=== PATIENT | female | born 1975 | race Caucasian/White ===

== ENCOUNTER 2020-02-03 23:14 | Emergency (ER) | payer MEDICAID ==
--- NOTE | 2020-02-04 00:43 | RADIOLOGY REPORT (SQ) ---
Left hip and pelvic radiographs: 02/03/2020 11:41 PM CDT TECHNIQUE: AP pelvis; AP and lateral views of the left hip were obtained. COMPARISON: None available HISTORY: 44-year-old patient with recent fall, left hip pain. FINDINGS: The visualized sacroiliac joints are unremarkable. There are no findings to suggest an acute fracture or subluxation within the left hip. There are no findings to suggest an acute fracture of the pelvis. Mild degenerative changes are seen within the lower lumbar spine. IMPRESSION: There are no findings to suggest an acute fracture or subluxation of the left hip. There are no findings to suggest an acute fracture within the pelvis.
[2020-02-04] MEDS ORDERED: CYCLOBENZAPRINE HCL 10 MG TABLET PO ONE (01:21)
[2020-02-04] MEDS ORDERED: DEXAMETHASONE SOD PHOS INJ 10 MG/1 ML VIAL IM ONE (01:21)
--- NOTE | 2020-02-04 01:25 | ER Document Report ---
HPI - HPI Time Seen by Provider: 02/04/20 01:06 Pain Level: 5 Context: Patient is a 44-year-old female that comes to the emergency department for chief complaint of several days of pain in her left lower back that radiates around to her left lateral buttock area. She states she thinks it is her hip that hurts her. She states that she has been sleeping on a small couch and since then she has started developing the symptoms. She denies a fall injury. She denies pain radiating down her leg, she denies focal numbness or weakness, she denies incontinence. She denies fever, urinary symptoms, flank pain otherwise, abdominal pain, nausea or vomiting. She denies ever using IV drugs. She is on Depo-Provera shot but no other medications. She denies any other medical history. - CONSTITUTIONAL Constitutional: DENIES: Fever, Chills - EENT EENT: DENIES: Sore Throat, Ear Pain, Eye problems - NEURO Neurology: DENIES: Headache, Weakness, Vision blurred, Dizzinesss / Vertigo - CARDIOVASCULAR Cardiovascular: DENIES: Chest pain - RESPIRATORY Respiratory: DENIES: Trouble Breathing, Coughing - GASTROINTESTINAL Gastrointestinal: DENIES: Abdominal Pain, Black / Bloody Stools - URINARY Urinary: DENIES: Dysuria, Urgency, Frequency - MUSCULOSKELETAL Musculoskeletal: REPORTS: Extremity pain - Left hip Past Medical History - General Information source: Patient - Social History Smoking Status: Current Every Day Smoker Drug Abuse: None Lives with: Family Family History: Reviewed & Not Pertinent Patient has homicidal ideation: No Surgical Hx: Negative - Immunizations Immunizations up to date: Yes Hx Diphtheria, Pertussis, Tetanus Vaccination: Yes Vertical Provider Document - CONSTITUTIONAL General Appearance: WD/WN, Thin. negative: No Apparent Distress - Patient moves uncomfortably but does not appear to be in severe distress - HEENT HEENT: Atraumatic, Normocephalic - NECK Neck: Normal Inspection - RESPIRATORY Respiratory: Breath Sounds Normal, No Respiratory Distress - CARDIOVASCULAR Cardiovascular: Regular Rate, Regular Rhythm - GI/ABDOMEN Gastrointestinal: Abdomen Soft, Abdomen Non-Tender. negative: Abdomen Tender - BACK Back: negative: Normal Inspection - Tenderness along the left paralumbar musculature extending down towards the left gluteal area. This is worse with straight leg raise on the left as well. No midline tenderness, no saddle anesthesia, no signs of trauma. Normal upper and lower extremity range of motion, normal strength, normal distal neurovascular exam. Patient can ambulate but with discomfort. - MUSCULOSKELETAL/EXTREMETIES Musculoskeletal/Extremeties: HUGO, FROM, Non-Tender - NEURO Level of Consciousness: Awake, Alert, Appropriate Motor/Sensory: No Motor Deficit, No Sensory Deficit - DERM Integumentary: Warm, Dry, No Rash Course - Re-evaluation Re-evalutation: Patient has very specific point tenderness along the musculature of the left paralumbar spinal muscles. This appears to be in spasm. No neurological deficits, no reported risk factors, no concerning findings otherwise. Vital signs unremarkable. X-ray from triage of the left hip does show some lumbar degenerative changes but no concerning findings of the hip. Hip exam is normal. Discussed options, patient has allergies to NSAIDs, acetaminophen. She was given dexamethasone here and placed on muscle relaxers. Discussed expectations, follow-up, return precautions. Patient states appreciation and agreement. Stable and well-appearing at time of discharge. - Vital Signs Vital signs: Temp Pulse Resp BP Pulse Ox 98.3 F 93 19 102/66 99 02/03/20 23:30 02/03/20 23:30 02/03/20 23:30 02/03/20 23:30 02/03/20 23:30 Discharge - Discharge Clinical Impression: Lower back pain Qualifiers: Chronicity: acute Back pain laterality: left Sciatica presence: without sciatica Qualified Code(s): M54.5 - Low back pain Condition: Stable Disposition: HOME, SELF-CARE Additional Instructions: Your x-ray imaging shows a normal hip and a small amount of arthritis/degenerative changes in your lower back. No concerning findings are noted. Your evaluation is consistent with most likely muscle spasm, possibly small herniated disc and pinched nerve. You have been treated for this, I recommend heat to the area, muscle relaxer as prescribed, gentle massage, and rest (avoiding lifting or twisting). Symptoms should simply resolve. Follow-up with primary care. Return if you worsen including developing numbness, fever, severe worsening pain, vomiting, inability to control your bowel or bladder, or any other concerning symptoms. Prescriptions: Cyclobenzaprine HCl 1 - 2 tab PO Q8H PRN #15 tablet PRN Reason: Forms: Return to Work
[2020-02-04 01:50] VITALS: BP 108/60
== END 2020-02-04 01:50 | disposition home or self-care (01) ==
LOC: ER 23:14
DX: M54.5 Low back pain (principal); F17.200 Nicotine dependence, unspecified, uncomplicated
CPT/HCPCS: 99283; 96372; 73502; J1100